=== PATIENT | female | born 2000 | race Caucasian/White ===

== ENCOUNTER 2024-04-16 07:18 | Emergency (ER) | payer SELFPAY ==
[2024-04-16 07:27] VITALS: BP 157/96
[2024-04-16 07:55] VITALS: BMI 24.9
--- NOTE | 2024-04-16 08:18 | ED.MUSCINJ ---
HPI-Injury
General
Chief Complaint: Musculo-Skeletal Complaint
Source: patient
Exam Limitations: none
Time Seen by Provider: 04/16/24 08:03
History of Present Illness-Injury
Initial Injury comments:
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 She was leaving her and stepped off the curb and twisted her foot and ankle. She felt pain along the dorsum of the foot that
wrapped around the lateral aspect of her ankle. She denies knee pain. She is having differential bearing weight today secondary to the pain. No other complaints
Phy Exam
Physical Exam
Physical Exam:
General: Well-appearing female no acute respiratory distress
HEENT: Normocephalic atraumatic
Musculoskeletal exam: Left ankle and foot swollen tender over the dorsal lateral aspect of the foot and the lateral aspect of the ankle. No deformities. Able to dorsi and plantarflex the foot. Able to resist eversion and inversion.
Vascular: 2+ dorsalis pedis pulse left foot
Neurologic: Good sensation left
Injury Course
Orders/Labs/Results
Orders:
Orders
04/16/24 07:31
Ankle, left 3 view CR [CR Ankle - Left Min 3 Views ] Urgent
Comment:
Reason For Exam: left ankle pain tripped in parking lot yesterday
04/16/24 07:34
Foot, Left 3 View [CR Foot - Left Min 3 Views] Urgent
Comment:
Reason For Exam: tripped and twisted left ankle foot
MDM/Problems Addressed
Differential Diagnosis Includes:
Left foot and ankle pain after twisting injury. Consider sprain versus fracture versus dislocation
I personally visualized x-rays of the left ankle and foot that were ordered through triage and are negative for acute bony abnormality. Radiology agrees. Patient was placed in a walking boot and will be advised to follow-up with our occupational
health or orthopedics for further evaluation
*Critical Care Note
Total Time (30-74mins, 75-104mins- exclusive of procedures): Not Applicable
ED Attending Note
-
Portions of this chart may have been created with voice recognition software.� Occasional wrong word or��sound alike� substitutions may have occurred due to the inherent limitations of voice recognition software.
Discharge Plan
Departure
Patient Disposition: Home (Routine Discharge)
Date of Disposition: 04/16/24
Time of Disposition: 08:21
Patient with high blood pressure during this ER visit?: No
Discharge Problem:
Ankle sprain
Instructions: Muscle and Bone Pain (DC)
Prescriptions:
No Action
escitalopram oxalate [Lexapro] 10 mg Tablet
10 mg PO DAILY
Stand Alone Forms: Return to Work
Activity Restrictions/Additional Instructions:
Rest. Elevate for swelling. You may use ibuprofen or Tylenol for pain. Use a boot for support when ambulating. Follow-up with occupational health or orthopedics
Interventions
Interventions:
*Risk Screen - Suicide Last Done: 04/16/24 07:27
*Neglect/Abuse Screening Last Done: 04/16/24 07:30
ED- Fall Risk Assessment Last Done: 04/16/24 07:53
*ED COVID-19 Vaccine History Last Done: 04/16/24 07:53
ED-Musculoskeletal Assessment Last Done: 04/16/24 07:53
Discharge Date and Time
Print Language: BULGARIAN
== END 2024-04-16 08:45 | disposition home or self-care (01) ==
LOC: EMR 07:18
PROVIDERS: EMERGENCY PHYSICIAN Emergency Medicine; FAMILY PHYSICIAN Family Medicine
DX: S93.402A Sprain of unspecified ligament of left ankle, initial encounter (principal); X50.1XXA Overexertion from prolonged static or awkward postures, initial encounter; W10.1XXA Fall (on)(from) sidewalk curb, initial encounter; Y92.481 Parking lot as the place of occurrence of the external cause
CPT/HCPCS: 99283; 29515; 73610; 73630

== ENCOUNTER → 2024-06-08 14:42 | Outpatient (REF) | payer BC, SELFPAY | LOC: UCDH 14:42 | PROVIDERS: ATTENDING PHYSICIAN Emergency Medicine | DX: J22 Unspecified acute lower respiratory infection (principal) | CPT/HCPCS: 71046 ==

== ENCOUNTER → 2024-10-25 08:35 | Outpatient (REF) | payer BC, SELFPAY ==
[2024-10-25 12:08] LABS: ALT (SGPT) 14 U/L (0-35); AST (SGOT) 20 U/L (14-36); Albumin 4.4 g/dl (3.5-5.0); Alkaline Phosphatase 73 U/L (38-126); Blood Urea Nitrogen 8 mg/dl (7-17); Calcium 9.6 mg/dl (8.4-10.2); Carbon Dioxide 24 mmol/L (22-30); Chloride 103 mmol/L (98-107); Glucose 202 mg/dl (70-99); HDL Cholesterol 60 mg/dl; LDL Cholesterol, Calculated 116 mg/dl; Potassium 4.8 mmol/L (3.5-5.1); Sodium 136 mmol/L (135-145); Total Bilirubin 0.6 mg/dl (0.2-1.3); Total Cholesterol 187 mg/dl (50-199); Total Protein 7.1 g/dl (6.3-8.2); Triglyceride 55 mg/dl (10-149); Very Low Density Lipoprotein 11 mg/dl (0-30); eGFR > 60.00
[2024-10-25 12:35] LABS: TSH 1.23 uIU/ml (0.47-4.68)
[2024-10-25 13:27] LABS: Free T4 1.46 ng/dl (0.78-2.19)
[2024-10-25 13:28] LABS: Urine Albumin 1+ (Neg - Trace); Urine Bilirubin Negative (Negative); Urine Character Clear (Clear); Urine Color Yellow; Urine Glucose Negative (Negative); Urine Ketone Negative (Negative); Urine Leukocyte Negative (Negative); Urine Nitrite Negative (Negative); Urine Occult Blood Negative (Negative); Urine Specific Gravity 1.025 (<1.030); Urine Urobilinogen Negative (Neg - 1+)
[2024-10-25 13:42] LABS: Glycohemoglobin (HgbA1c) 7.6 % (4.0-5.6)
[2024-10-25 14:19] LABS: Urine Mucus Many
[2024-10-25 14:20] LABS: Urine Squamous Cell 21-25 /LPF (Few)
[2024-10-25 14:21] LABS: Urine Amorphous Seen; Urine Urothelial Cell 0-2 /LPF (FEW)
[2024-10-25 14:24] LABS: Urine Red Blood Cell 0-2 /HPF (0-2)
[2024-10-25 14:25] LABS: Urine Bacteria Many (Negative)
== END ==
LOC: HWRAD 08:35
PROVIDERS: ATTENDING PHYSICIAN Family Medicine
DX: R10.31 Right lower quadrant pain (principal); E01.0 Iodine-deficiency related diffuse (endemic) goiter; E10.9 Type 1 diabetes mellitus without complications
CPT/HCPCS: 36415; 76856; 80053; 80061; 81003; 81015; 83036; 84439; 84443; 87086

== ENCOUNTER → 2025-02-06 12:48 | Outpatient (REF) | payer BC, SELFPAY ==
[2025-02-08 19:50] LABS: Buprenorphine, Urine Negative; Carisoprodol, Urine Negative; Ethyl Glucuronide, Urine Negative; Marijuana, Urine Negative; Oxycodone/Oxymorphone, Urine Negative; PCP (Phencyclidine), Urine Negative; Propoxyphene, Urine Negative; Zolpidem, Urine Negative
== END ==
LOC: REG 12:48
PROVIDERS: ATTENDING PHYSICIAN Family Medicine
DX: Z02.83 Encounter for blood-alcohol and blood-drug test (principal)
CPT/HCPCS: 80307

== ENCOUNTER → 2025-02-13 09:54 | Outpatient (REF) | payer BC, SELFPAY | LOC: HWLAB 09:54 | PROVIDERS: ATTENDING PHYSICIAN Family Medicine | DX: Z11.1 Encounter for screening for respiratory tuberculosis (principal) | CPT/HCPCS: 36415; 86480 ==